=== PATIENT | male | born 1980 | race American Indian/Alaskan Native ===

== ENCOUNTER 2016-10-05 22:22 | Emergency (ER) | payer MEDICAID, OTHER ==
--- NOTE | 2016-10-06 00:57 | EDM.PDOC ---
ED HPI Trauma - General Chief Complaint: Upper Extremity Injury/Pain Stated Complaint: HURT WRIST - History of Present Illness INITIAL COMMENTS - FREE TEXT/NARRATIVE: See paper chart for details Allergies/ADRs: Allergies No Known Allergies Allergy (Verified 10/05/16 23:58) Home Medications: Ambulatory Orders Nitroglycerin [Nitrostat] 0.4 mg SL ASDIRECTED PRN 05/10/14 [Confirmed 10/05/16] Acetaminophen [Tylenol] 650 mg PO Q4H PRN #0 tablet 09/07/15 [Confirmed 10/05/16 ] Aspirin [Ecotrin] 81 mg PO DAILY 03/01/16 [Confirmed 10/05/16] Clopidogrel [Plavix] 75 mg PO DAILY 07/26/16 [Confirmed 10/05/16] Simvastatin [Zocor] 10 mg PO DAILY 07/26/16 [Confirmed 10/05/16] Past Medical History - Past Health History Medical/Surgical History: Denies Medical/Surgical History Cardiovascular History: Reports: Angina, CAD, High cholesterol, Hypertension, [place] , Stents Gastrointestinal History: Reports: GERD, GI bleed, Helicobacter pylori, PUD Musculoskeletal History: Reports: Other (see below) Other Musculoskeletal History: chronic pain in feet gwyn re: plantar fascitis and heelspurs Neurological History: Reports: Migraines Psychiatric History: Reports: Depression, Psych Hospitalization(s), Suicide attempt Endocrine/Metabolic History: Reports: Obesity/BMI 30+ - Infectious Disease History Infectious Disease History: Reports: Chicken pox - Past Surgical History Cardiovascular Surgical History: Reports: Coronary artery stent, Other (see below) Other Cardiovascular Surgeries/Procedures: angiogram GI Surgical History: Reports: Colonoscopy Musculoskeletal Surgical History: Reports: Other (see below) Other Musculoskeletal Surgeries/Procedures:: surgery on left foot for plantar fascitis in 2014 Social & Family History - Family History HEENT: Reports: Cataract Cardiac: Reports: [place], Prior cardiac arrest, Other (see below) Other Cardiac Family History: 33yr old cousin from massive heart attack Neurological: Reports: CVA, Seizure Psychiatric: Reports: Depression Endocrine/Metabolic: Reports: Diabetes, type II - Tobacco Use Smoking Status *Q: Former Smoker Years of Tobacco use: 20 Packs/Tins Daily: 0.5 Used Tobacco, but Quit: Yes Month Tobacco Last Used: jul 2016 Second Hand Smoke Exposure: Yes - Caffeine Use Caffeine Use: Reports: None - Alcohol Use Days Per Week of Alcohol Use: 0 - Recreational Drug Use Recreational Drug Use: No Drug Use in Last 12 Months: No Recreational Drug Type: Reports: Marijuana/Hashish Recreational Drug Use Frequency: Binges Recreational Drug Last Use: over a year ago Review of Systems - Review of Systems Review Of Systems: ROS reveals no pertinent complaints other than HPI. Trauma Exam - Physical Exam Exam: See Below Text/Narrative:: See paper chart for details Departure - Departure Time of Disposition: 00:56 Disposition: Home, Self-Care 01 Condition: good Clinical Impression: Contusion of bone Referrals: PCP,None [Primary Care Provider] - Forms: ED Department Discharge Additional Instructions: Nonsteroidal anti-inflammatories, ice, Please followup with your primary care provider in 3 to5 days if not better, please call return to the emergency department with worsening of symptoms.
--- NOTE | 2016-10-08 08:38 | CR ---
Forearm 2V Rt HISTORY: ?FX FINDINGS: No acute fracture or dislocation is identified. Bony architecture and joint spaces are preserved. Soft tissues are unremarkable. IMPRESSION: No acute right forearm abnormality identified.
== END 2016-10-05 23:38 | disposition home or self-care (01) ==
LOC: JP.ED 22:22
DX: S50.11XA Contusion of right forearm, initial encounter (principal); I25.10 Atherosclerotic heart disease of native coronary artery without angina pectoris; I10 Essential (primary) hypertension; I25.2 Old myocardial infarction; E78.00 Pure hypercholesterolemia, unspecified; K21.9 Gastro-esophageal reflux disease without esophagitis; F32.9 Major depressive disorder, single episode, unspecified; E66.9 Obesity, unspecified; Z68.36 Body mass index [BMI] 36.0-36.9, adult; Z95.5 Presence of coronary angioplasty implant and graft; Z98.890 Other specified postprocedural states; Z87.891 Personal history of nicotine dependence; Z79.82 Long term (current) use of aspirin; Z79.02 Long term (current) use of antithrombotics/antiplatelets; Z79.899 Other long term (current) drug therapy; X58.XXXA Exposure to other specified factors, initial encounter
CPT/HCPCS: 73090-26-RT; 73090-RT; 99282; 99284

== ENCOUNTER 2017-04-09 19:36 | Emergency (ER) | payer MEDICAID ==
[2017-04-09] MEDS ORDERED: HYDROmorphone 1 MG/ML Syringe IVPUSH ONE (20:50)
[2017-04-09] MEDS ORDERED: Ondansetron 4 MG/2 ML SDV IVPUSH ONE (20:51)
[2017-04-09] MEDS ORDERED: Sodium Chloride 0.9% 1,000 ML IV SCH (21:00)
[2017-04-09 21:45] VITALS: BP 121/72
--- NOTE | 2017-04-09 22:38 | EDM.PDOC ---
ED HPI GENERAL MEDICAL PROBLEM - General Chief Complaint: Back Pain or Injury Stated Complaint: BACK PAIN Time Seen by Provider: 04/09/17 20:15 Source of Information: Reports: Patient, Family () History Limitations: Reports: No Limitations - History of Present Illness INITIAL COMMENTS - FREE TEXT/NARRATIVE: back pain x 24 hours; this is a 36 year old male present to ER with , concerns of worsen back pain over the past 24 hours. Reports fever, chills, decreased urine amounts. also reports Granddaughter staying at the home, so he is now sleeping on the floor on a mattress. Rate pain at 7. Onset: Gradual Duration: Day(s): (one) Location: Reports: Back Quality: Reports: Sharp, Throbbing Severity: Moderate Improves with: Reports: None Worsens with: Reports: None Associated Symptoms: Reports: Fever/Chills Treatments WELT DRAWER: Reports: Acetaminophen, NSAIDS Bilateral Middle Back Pain Score (Numeric/FACES): 7 - Related Data Allergies Allergy/AdvReac Type Severity Reaction Status Date / Time No Known Allergies Allergy Verified 04/09/17 20:27 Home Meds: Home Meds Nitroglycerin [Nitrostat] 0.4 mg SL ASDIRECTED PRN 05/10/14 [History] Acetaminophen [Tylenol] 650 mg PO Q4H PRN #0 tablet 09/07/15 [Rx] Aspirin [Ecotrin] 81 mg PO DAILY 03/01/16 [History] Clopidogrel [Plavix] 75 mg PO DAILY 07/26/16 [History] Simvastatin [Zocor] 10 mg PO DAILY 07/26/16 [History] Past Medical History - Past Health History Medical/Surgical History: Denies Medical/Surgical History Cardiovascular History: Reports: Angina, CAD, High Cholesterol, Hypertension, [place] , Stents Gastrointestinal History: Reports: GERD, GI Bleed, Helicobacter Pylori, PUD Musculoskeletal History: Reports: Fracture Other Musculoskeletal History: chronic pain in feet gwyn re: plantar fascitis and heelspurs Neurological History: Reports: Migraines Psychiatric History: Reports: Depression, Psych Hospitalization(s), Suicide Attempt Endocrine/Metabolic History: Reports: Obesity/BMI 30+ - Infectious Disease History Infectious Disease History: Reports: Chicken Pox - Past Surgical History Cardiovascular Surgical History: Reports: Coronary Artery Stent, Other (See Below) Social & Family History - Family History HEENT: Reports: Cataract Cardiac: Reports: [place], Prior Cardiac Arrest, Other (See Below) Other Cardiac Family History: 33yr old cousin from massive heart attack Neurological: Reports: CVA, Seizure Psychiatric: Reports: Depression Endocrine/Metabolic: Reports: Diabetes, type II - Tobacco Use Smoking Status *Q: Current Every Day Smoker Years of Tobacco use: 20 Packs/Tins Daily: 1 Used Tobacco, but Quit: No Month Tobacco Last Used: jul 2016 Second Hand Smoke Exposure: Yes - Caffeine Use Caffeine Use: Reports: Tea - Alcohol Use Days Per Week of Alcohol Use: 0 - Recreational Drug Use Recreational Drug Use: Yes Drug Use in Last 12 Months: No Recreational Drug Type: Reports: Marijuana/Hashish Recreational Drug Use Frequency: Binges Recreational Drug Last Use: over a year ago - Living Situation & Occupation Living situation: Reports: (lives with , Ladan, and family in [place], [place].) ED ROS GENERAL - Review of Systems Review Of Systems: See Below Constitutional: Reports: Fever, Chills HEENT: Reports: No Symptoms Respiratory: Reports: No Symptoms Cardiovascular: Reports: No Symptoms Endocrine: Reports: No Symptoms GI/Abdominal: Reports: No Symptoms : Reports: Urgency, Urinary Retention Musculoskeletal: Reports: Back Pain Skin: Reports: No Symptoms Neurological: Reports: No Symptoms Psychiatric: Reports: No Symptoms Hematologic/Lymphatic: Reports: No Symptoms Immunologic: Reports: No Symptoms ED EXAM, GENERAL - Physical Exam Exam: See Below Exam Limited By: No Limitations General Appearance: Moderate Distress (unable to lay flat due to pain and muscle spasm.) Eye Exam: Bilateral Eye: Normal Inspection, PERRL Ears: Normal External Exam, Normal Canal, Hearing Grossly Normal, Normal TMs Ear Exam: Bilateral Ear: Auricle Normal, Canal Normal, TM normal Nose: Normal Inspection, Normal Mucosa, No Blood Throat/Mouth: Normal Inspection, Normal Lips, Normal Teeth, Normal Gums, Normal Oropharynx, Normal Voice, No Airway Compromise Head: Atraumatic, Normocephalic Neck: Normal Inspection, Supple, Non-Tender, Full Range of Motion Respiratory/Chest: No Respiratory Distress, Lungs Clear, Normal Breath Sounds, No Accessory Muscle Use, Chest Non-Tender Cardiovascular: Normal Peripheral Pulses, Regular Rate, Rhythm, No Edema, No Murmur GI/Abdominal: Normal Bowel Sounds, Soft, Non-Tender, No Organomegaly, No Distention, No Abnormal Bruit, No Mass (Male) Exam: Deferred Rectal (Males) Exam: Deferred Back Exam: Muscle Spasm (mid to low lumbar spine) Extremities: Increased Warmth Psychiatric: Normal Affect, Normal Mood Skin Exam: Warm, Dry, Intact, Normal Color, No Rash Lymphatic: No Adenopathy Course - Vital Signs Last Recorded V/S: Last Vital Signs Temp 36.4 C 04/09/17 20:42 Pulse 72 04/09/17 21:44 Resp 18 04/09/17 21:44 BP 121/72 04/09/17 21:44 Pulse Ox 95 04/09/17 21:44 - Orders/Labs/Meds Orders: Active Orders 24 hr Category Date Time Status Abdomen Pelvis wo Cont [CT] Stat Exams 04/09/17 20:51 Taken CULTURE URINE [RM] Stat Lab 04/09/17 10:30 Received Sodium Chloride 0.9% [Normal Saline] 1,000 ml Med 04/09/17 21:00 Active IV ASDIRECTED Medication Orders Sodium Chloride (Normal Saline) 1,000 mls @ 999 mls/hr IV ASDIRECTED ENZO Last Admin: 04/09/17 21:38 Dose: 999 mls/hr Labs: Laboratory Tests 04/09/17 04/09/17 04/09/17 Range/Units 20:54 21:02 21:02 WBC 12.6 H (4.5-11.0) K/uL RBC 5.56 (4.30-5.90) M/uL Hgb 16.0 H (12.0-15.0) g/dL Hct 47.9 (40.0-54.0) % MCV 86 (80-98) fL MCH 29 (27-31) pg MCHC 33 (32-36) % Plt Count 350 (150-400) K/uL Neut % (Auto) 61 (36-66) % Lymph % (Auto) 28 (24-44) % [place] % (Auto) 9 H (2-6) % Eos % (Auto) 2 (2-4) % Baso % (Auto) 1 (0-1) % Sodium 140 (140-148) mmol/L Potassium 4.0 (3.6-5.2) mmol/L Chloride 107 (100-108) mmol/L Carbon Dioxide 28 (21-32) mmol/L Anion Gap 4.8 L (5.0-14.0) mmol/L BUN 12 (7-18) mg/dL Creatinine 1.0 (0.8-1.3) mg/dL Est Cr Clr Drug Dosing 106.68 mL/min Estimated GFR (MDRD) > 60 (>60) Glucose 92 (74-106) mg/dL Calcium 8.5 (8.5-10.1) mg/dL Total Bilirubin 0.7 (0.2-1.0) mg/dL AST 12 L (15-37) U/L ALT 26 (12-78) U/L Alkaline Phosphatase 79 (46-116) U/L Total Protein 7.8 (6.4-8.2) g/dL Albumin 3.8 (3.4-5.0) g/dL Globulin 4.0 H (2.3-3.5) g/dL Albumin/Globulin Ratio 1.0 L (1.2-2.2) Urine Color Yellow Urine Appearance Cloudy Urine pH 5.0 (4.5-8.0) Ur Specific [place] 1.030 (1.008-1.030) Urine Protein Negative (NEGATIVE) mg/dL Urine Glucose (UA) 250 H (NEGATIVE) mg/dL Urine Ketones Negative (NEGATIVE) mg/dL Urine Occult Blood Trace (NEGATIVE) Urine Nitrite Negative (NEGAITVE) Urine Bilirubin Negative (NEGATIVE) Urine Urobilinogen 1 (NORMAL) mg/dL Ur Leukocyte Esterase Negative (NEGATIVE) Urine RBC 5-10 H (0-5) Urine WBC 5-10 H (0-5) Ur Epithelial Cells Moderate Amorphous Sediment Moderate Urine Bacteria Few Urine Mucus Moderate Urine Other See note Meds: Medications Generic Name Dose Route Start Last Admin Trade Name Freq PRN Reason Stop Dose Admin Sodium Chloride 1,000 mls @ 999 mls/hr 04/09/17 21:00 04/09/17 21:38 Normal Saline IV 999 mls/hr ASDIRECTED ENZO Administration Discontinued Medications Generic Name Dose Route Start Last Admin Trade Name Freq PRN Reason Stop Dose Admin Hydromorphone HCl 1 mg 04/09/17 20:50 04/09/17 21:42 Dilaudid IVPUSH 04/09/17 20:51 1 mg ONETIME ONE Administration Ondansetron HCl 4 mg 04/09/17 20:51 04/09/17 21:38 Zofran IVPUSH 04/09/17 20:52 4 mg ONETIME ONE Administration - Re-Assessments/Exams Free Text/Narrative Re-Assessment/Exam: 04/09/17 IV fluids and medications started labs; cbc, mild elevated WBC, chemistry; negative for sepsis, urine; +RBC, +WBC , +occult blood CT scan of Abdomen-pelvis; negative for acute pathology. reviewed labs and Xray with and Mrs. Kendrick will plan to discharge to home with medications to treat early UTI, and acute low back pain. urine culture pending. will need to follow up with Primary Care for recheck and Mrs Kendrick agree with plan of care. copy of CT reports given to couple for records. Departure - Departure Time of Disposition: 23:06 Disposition: Home, Self-Care 01 Condition: Good Clinical Impression: Muscle spasm of back Urinary tract infection Qualifiers: Urinary tract infection type: acute cystitis Hematuria presence: with hematuria Qualified Code(s): N30.01 - Acute cystitis with hematuria - Discharge Information Instructions: Urinary Tract Infection, Adult Referrals: PCP,None [Primary Care Provider] - Forms: ED Department Discharge Care Plan Goals: bladder infection in male -Keflex 500mg take one tablet two times a day for 7 days, -urine culture pending -drink plenty of fluids back spasm -push fluids -rest, no bending, lifting or twisting of spine for 3 days -take Tylenol or Motrin for pain -take Flexeril 10 mg every 8 hours as needed for spasm -take tylenol with codiene one every 4 to 6 hours as need for acute pain. Return to Clinic or ER for any increased pain, fever, chills, or not improved. - Problem List & Annotations (1) Muscle spasm of back SNOMED Code(s): 467511634 Code(s): M62.830 - MUSCLE SPASM OF BACK Status: Acute Priority: High Current Visit: Yes (2) Urinary tract infection SNOMED Code(s): 76463693 Code(s): N39.0 - URINARY TRACT INFECTION, SITE NOT SPECIFIED Status: Acute Priority: High Current Visit: Yes Qualifiers: Urinary tract infection type: acute cystitis Hematuria presence: with hematuria Qualified Code(s): N30.01 - Acute cystitis with hematuria - Problem List Review Problem List Initiated/Reviewed/Updated: Yes - My Orders Last 24 Hours: My Active Orders 04/09/17 10:30 CULTURE URINE [RM] Stat 04/09/17 20:51 Abdomen Pelvis wo Cont [CT] Stat 04/09/17 21:00 Sodium Chloride 0.9% [Normal Saline] 1,000 ml IV ASDIRECTED - Assessment/Plan Last 24 Hours: My Active Orders 04/09/17 10:30 CULTURE URINE [RM] Stat 04/09/17 20:51 Abdomen Pelvis wo Cont [CT] Stat 04/09/17 21:00 Sodium Chloride 0.9% [Normal Saline] 1,000 ml IV ASDIRECTED Plan: bladder infection in male -Keflex 500mg take one tablet two times a day for 7 days, -urine culture pending -drink plenty of fluids back spasm -push fluids -rest, no bending, lifting or twisting of spine for 3 days -take Tylenol or Motrin for pain -take Flexeril 10 mg every 8 hours as needed for spasm -take tylenol with codiene one every 4 to 6 hours as need for acute pain. Return to Clinic or ER for any increased pain, fever, chills, or not improved.
== END 2017-04-09 22:50 | disposition home or self-care (01) ==
LOC: JP.ED 19:36
DX: M62.838 Other muscle spasm (principal); N30.01 Acute cystitis with hematuria; I25.119 Atherosclerotic heart disease of native coronary artery with unspecified angina pectoris; I10 Essential (primary) hypertension; I25.2 Old myocardial infarction; E78.00 Pure hypercholesterolemia, unspecified; K21.9 Gastro-esophageal reflux disease without esophagitis; F32.9 Major depressive disorder, single episode, unspecified; F17.210 Nicotine dependence, cigarettes, uncomplicated; E66.9 Obesity, unspecified; Z68.37 Body mass index [BMI] 37.0-37.9, adult; Z79.82 Long term (current) use of aspirin; Z79.02 Long term (current) use of antithrombotics/antiplatelets; Z79.899 Other long term (current) drug therapy; Z95.5 Presence of coronary angioplasty implant and graft
CPT/HCPCS: 36415; 74176; 80053; 81001; 85025; 87086; 96361; 96374; 96375; 99284; J1170; J2405; J7040; 99283

== ENCOUNTER 2017-05-24 23:13 | Emergency (ER) | payer MEDICAID ==
[2017-05-24] MEDS ORDERED: Aspirin 81 MG Tab.Chew ONE (23:16)
[2017-05-24] MEDS ORDERED: Nitroglycerin 0.4 MG Tab.SL ONE (23:41)
[2017-05-24] MEDS: Nitroglycerin 0.4 MG Tab.SL SL PRN ×2 (23:42→23:47)
[2017-05-24] MEDS ORDERED: Aspirin 81 MG Tab.Chew PO ONE (23:43)
[2017-05-24] MEDS ORDERED: Sodium Chloride 0.9% 10 ML Syringe FLUSH PRN (23:43)
[2017-05-25 00:32] VITALS: BP 120/66
--- NOTE | 2017-05-25 01:41 | EDM.PDOC ---
ED HPI GENERAL MEDICAL PROBLEM - General Chief Complaint: Chest Pain Stated Complaint: CHEST PAIN / SOB Time Seen by Provider: 05/24/17 23:42 Source of Information: Reports: Patient History Limitations: Reports: No Limitations - History of Present Illness INITIAL COMMENTS - FREE TEXT/NARRATIVE: This patient comes in complaining of substernal chest tightness that began about 7:30 or 8 PM. He felt a little bit short of breath. He vomited twice. He denied any sweats. He had cardiac stents placed in 2013. He said he had an NM last year was treated in [place] but they did not do any more stents. He does not have a PCP. His smoke smoker. He said his pain initially was about 7 or 8 out of 10 but now it's only 4 out of 10he lost his bottle of nitroglycerin Treatments COMPLAINTS COORDINATOR: Reports: Aspirin Chest Pain Score (Numeric/FACES): 2 - Related Data Allergies Allergy/AdvReac Type Severity Reaction Status Date / Time No Known Allergies Allergy Verified 04/09/17 20:27 Home Meds: Home Meds Nitroglycerin [Nitrostat] 0.4 mg SL ASDIRECTED PRN 05/10/14 [History] Acetaminophen [Tylenol] 650 mg PO Q4H PRN #0 tablet 09/07/15 [Rx] Aspirin [Ecotrin] 81 mg PO DAILY 03/01/16 [History] Clopidogrel [Plavix] 75 mg PO DAILY 07/26/16 [History] Simvastatin [Zocor] 10 mg PO DAILY 07/26/16 [History] Past Medical History - Past Health History Medical/Surgical History: Denies Medical/Surgical History Cardiovascular History: Reports: Angina, CAD, High Cholesterol, Hypertension, [place] , Stents Gastrointestinal History: Reports: GERD, GI Bleed, Helicobacter Pylori, PUD Musculoskeletal History: Reports: Fracture Other Musculoskeletal History: chronic pain in feet gwyn re: plantar fascitis and heelspurs Neurological History: Reports: Migraines Psychiatric History: Reports: Depression, Psych Hospitalization(s), Suicide Attempt Endocrine/Metabolic History: Reports: Obesity/BMI 30+ - Infectious Disease History Infectious Disease History: Reports: Chicken Pox - Past Surgical History Cardiovascular Surgical History: Reports: Coronary Artery Stent, Other (See Below) Social & Family History - Family History HEENT: Reports: Cataract Cardiac: Reports: [place], Prior Cardiac Arrest, Other (See Below) Other Cardiac Family History: 33yr old cousin from massive heart attack Neurological: Reports: CVA, Seizure Psychiatric: Reports: Depression Endocrine/Metabolic: Reports: Diabetes, type II - Tobacco Use Smoking Status *Q: Light Tobacco Smoker Years of Tobacco use: 25 Packs/Tins Daily: 0.5 Used Tobacco, but Quit: No Month Tobacco Last Used: jul 2016 Second Hand Smoke Exposure: Yes - Caffeine Use Caffeine Use: Reports: Soda - Alcohol Use Days Per Week of Alcohol Use: 0 - Recreational Drug Use Recreational Drug Use: Yes Drug Use in Last 12 Months: No Recreational Drug Type: Reports: Marijuana/Hashish Recreational Drug Use Frequency: Binges Recreational Drug Last Use: over a year ago - Living Situation & Occupation Living situation: Reports: (lives with , Ladan, and family in [facility]) ED ROS GENERAL - Review of Systems Review Of Systems: See Below Constitutional: Reports: No Symptoms HEENT: Reports: No Symptoms Respiratory: Reports: Shortness of Breath Cardiovascular: Reports: Chest Pain Endocrine: Reports: No Symptoms GI/Abdominal: Reports: No Symptoms : Reports: No Symptoms ED EXAM, GENERAL - Physical Exam Exam: See Below Exam Limited By: No Limitations General Appearance: Alert, WD/WN, No Apparent Distress Eye Exam: Bilateral Eye: Normal Inspection Ears: Normal External Exam Head: Atraumatic Respiratory/Chest: Lungs Clear Cardiovascular: Regular Rate, Rhythm, No Murmur GI/Abdominal: Soft, Non-Tender (Male) Exam: Normal Inspection Extremities: Normal Inspection Neurological: Alert, Oriented Skin Exam: Warm, Dry Course - Vital Signs Last Recorded V/S: Last Vital Signs Temp 36.1 C 05/24/17 23:29 Pulse 79 05/25/17 00:32 Resp 18 05/25/17 00:32 BP 120/66 05/25/17 00:32 Pulse Ox 96 05/25/17 00:32 - Orders/Labs/Meds Orders: Active Orders 24 hr Category Date Time Status EKG Documentation Completion [RC] ASDIRECTED Care 05/24/17 23:43 Active EKG Documentation Completion [RC] ASDIRECTED Care 05/25/17 01:05 Active Chest 1V Frontal [CR] Urgent Exams 05/24/17 23:43 Taken Saline Lock Insert [OM.PC] Urgent Oth 05/24/17 23:43 Ordered EKG 12 Lead [EK] Urgent Ther 05/24/17 23:43 Ordered EKG 12 Lead [EK] Urgent Ther 05/25/17 01:05 Ordered Labs: Laboratory Tests 05/24/17 05/24/17 Range/Units 23:30 23:30 WBC 11.3 H (4.5-11.0) K/uL RBC 5.63 (4.30-5.90) M/uL Hgb 16.6 H (12.0-15.0) g/dL Hct 48.4 (40.0-54.0) % MCV 86 (80-98) fL MCH 30 (27-31) pg MCHC 34 (32-36) % Plt Count 331 (150-400) K/uL Neut % (Auto) 64 (36-66) % Lymph % (Auto) 27 (24-44) % [place] % (Auto) 8 H (2-6) % Eos % (Auto) 1 L (2-4) % Baso % (Auto) 0 (0-1) % Sodium 140 (140-148) mmol/L Potassium 3.6 (3.6-5.2) mmol/L Chloride 106 (100-108) mmol/L Carbon Dioxide 26 (21-32) mmol/L Anion Gap 8.1 (5.0-14.0) mmol/L BUN 11 (7-18) mg/dL Creatinine 1.0 (0.8-1.3) mg/dL Est Cr Clr Drug Dosing 106.68 mL/min Estimated GFR (MDRD) > 60 (>60) Glucose 106 (74-106) mg/dL Calcium 8.5 (8.5-10.1) mg/dL Total Bilirubin 1.1 H D (0.2-1.0) mg/dL AST 17 (15-37) U/L ALT 46 D (12-78) U/L Alkaline Phosphatase 89 (46-116) U/L Troponin I < 0.017 (0.000-0.056) ng/mL Total Protein 7.1 (6.4-8.2) g/dL Albumin 3.7 (3.4-5.0) g/dL Globulin 3.4 (2.3-3.5) g/dL Albumin/Globulin Ratio 1.1 L (1.2-2.2) Meds: Medications Discontinued Medications Generic Name Dose Route Start Last Admin Trade Name Kaye PRN Reason Stop Dose Admin Aspirin 324 mg 05/24/17 23:43 05/24/17 23:17 Aspirin PO 05/24/17 23:44 324 mg ONETIME ONE Administration Nitroglycerin Confirm 05/24/17 23:41 05/24/17 23:47 Nitrostat Administered 05/24/17 23:42 Not Given Dose 0.4 mg .ROUTE .STK-MED ONE Nitroglycerin 0.4 mg 05/24/17 23:44 05/24/17 23:47 Nitrostat SL 0.4 mg Q5M PRN Administration Chest Pain Sodium Chloride 10 ml 05/24/17 23:43 05/24/17 23:47 Saline Flush FLUSH 10 ml ASDIRECTED PRN Administration Keep Vein Open - Re-Assessments/Exams Free Text/Narrative Re-Assessment/Exam: 05/25/17 06:55 EKG shows normal sinus rhythm at 78 bpm incomplete right bundle branch block there were no ischemic changes Free Text/Narrative Re-Assessment/Exam: 05/25/17 06:56 Patient was given a total of 3 sublingual nitroglycerin times. After the second one his pain was mostly relieved and after the third when his pain was completely relieved labs were noted initial troponin is negative I discussed with the patient that we wanted to do a 3 hour troponin and repeat EKG before he left initially he agreed that then shortly afterwards decided he wanted to go home. After reconsideration I realize that he was having pain for 4 hours before having his first EKG and troponin so I don't think there is much value in waiting to do to three-hour troponin. Patient was given a new prescription for sublingual nitroglycerin. He was encouraged to follow up with his dolly pusher or a new primary care provider within the next week or 2. Return to the ER anytime if worse Departure - Departure Time of Disposition: 01:38 Disposition: Home, Self-Care 01 Condition: Fair Clinical Impression: Chest pain Instructions: Angina Pectoris, [id number] Referrals: PCP,None [Primary Care Provider] - Forms: ED Department Discharge Additional Instructions: The test we did were done after you had pain for about 4 hours. There is no evidence of a heart attack. Still it's likely that a part of your heart wasn't getting enough blood and so there could be some blockage. If the pain returns use the nitroglycerin. You can repeated every 3-5 minutes. If the pain isn't relieved after 2 nitroglycerin tablets then you should call 911 and return to the ER. Take 1 baby aspirin 81 mg daily. This is really important. Try to see the dolly pusher within the next couple of weeks. It would be advisable for you to have a family doctor locally. - My Orders Last 24 Hours: My Active Orders 05/24/17 23:43 EKG Documentation Completion [RC] ASDIRECTED Chest 1V Frontal [CR] Urgent Saline Lock Insert [OM.PC] Urgent EKG 12 Lead [EK] Urgent 05/25/17 01:05 EKG Documentation Completion [RC] ASDIRECTED EKG 12 Lead [EK] Urgent - Assessment/Plan Last 24 Hours: My Active Orders 05/24/17 23:43 EKG Documentation Completion [RC] ASDIRECTED Chest 1V Frontal [CR] Urgent Saline Lock Insert [OM.PC] Urgent EKG 12 Lead [EK] Urgent 05/25/17 01:05 EKG Documentation Completion [RC] ASDIRECTED EKG 12 Lead [EK] Urgent
--- NOTE | 2017-05-27 09:48 | CR ---
Chest 1V Frontal FINDINGS: The heart and vascular structures are normal in appearance. There are shallow lung volumes. There is elevation of the left hemidiaphragm. No infiltrates or effusions are demonstrated. The skel etal structures are unremarkable. IMPRESSION: 1. No acute findings.
== END 2017-05-25 01:49 | disposition home or self-care (01) ==
LOC: JP.ED 23:13
DX: R07.2 Precordial pain (principal); I10 Essential (primary) hypertension; I25.10 Atherosclerotic heart disease of native coronary artery without angina pectoris; E78.00 Pure hypercholesterolemia, unspecified; I25.2 Old myocardial infarction; K21.9 Gastro-esophageal reflux disease without esophagitis; F32.9 Major depressive disorder, single episode, unspecified; E66.9 Obesity, unspecified; Z95.5 Presence of coronary angioplasty implant and graft; F17.210 Nicotine dependence, cigarettes, uncomplicated; Z79.82 Long term (current) use of aspirin; Z79.02 Long term (current) use of antithrombotics/antiplatelets; Z79.899 Other long term (current) drug therapy; Z68.37 Body mass index [BMI] 37.0-37.9, adult
CPT/HCPCS: 36415; 71010; 80053; 84484; 85025; 93005; 99285; A9270; J7050

== ENCOUNTER 2018-04-30 20:34 | Emergency (ER) | payer MEDICAID ==
[2018-04-30 20:46] VITALS: BP 123/79
--- NOTE | 2018-04-30 21:11 | EDM.PDOC ---
ED HPI GENERAL MEDICAL PROBLEM - General Chief Complaint: Respiratory Problem Stated Complaint: SOB,LEFT SIDE FACE NUMB Time Seen by Provider: 04/30/18 20:55 Source of Information: Reports: Patient, Old Records, RN History Limitations: Reports: No Limitations - History of Present Illness INITIAL COMMENTS - FREE TEXT/NARRATIVE: 37 yo male with a known hx of CAD was started on isosorbide ? mononitrate a week ago by his nutrient management specialist in [place]. He was given this med due to having nearly daily chest pains. While he admits he has less chest pain since starting this med, he now gets numbness to the R side of his face and feels light-headed with standing after taking the med. His urine is not dark. He also mentions intermittent SOB since starting this med, he is not SOB now. He has not called his nutrient management specialist before coming to the ER. Onset: Sudden Onset Date: 04/24/18 Duration: Day(s): Location: Reports: Head, Face, Chest Severity: Mild Improves with: Reports: Other (not taking isosorbide) Worsens with: Reports: Other (? taking isosorbide) Context: Reports: Other (new med, known CAD) Associated Symptoms: Reports: Shortness of Breath. Denies: Diaphoresis, Headaches, Nausea/Vomiting Treatments HAND OUTSIDE CUTTER: Reports: Other (see below) (none) - Related Data Allergies Allergy/AdvReac Type Severity Reaction Status Date / Time No Known Allergies Allergy Verified 04/30/18 20:46 Home Meds: Home Meds Nitroglycerin [Nitrostat] 0.4 mg SL ASDIRECTED PRN 05/10/14 [History] Acetaminophen [Tylenol] 650 mg PO Q4H PRN #0 tablet 09/07/15 [Rx] Aspirin [Ecotrin] 81 mg PO DAILY 03/01/16 [History] Isosorbide Mononitrate [Isosorbide Mononitrate ER] 30 mg PO DAILY 04/30/18 [ History] atorvaSTATin [Lipitor] 80 mg PO BEDTIME 04/30/18 [History] Past Medical History - Past Health History Medical/Surgical History: Denies Medical/Surgical History Cardiovascular History: Reports: Angina, CAD, High Cholesterol, Hypertension, [place] , Stents Gastrointestinal History: Reports: GERD, GI Bleed, Helicobacter Pylori, PUD Musculoskeletal History: Reports: Fracture Other Musculoskeletal History: chronic pain in feet gwyn re: plantar fascitis and heelspurs Neurological History: Reports: Migraines Psychiatric History: Reports: Depression, Psych Hospitalization(s), Suicide Attempt Endocrine/Metabolic History: Reports: Obesity/BMI 30+ - Infectious Disease History Infectious Disease History: Reports: Chicken Pox - Past Surgical History Cardiovascular Surgical History: Reports: Coronary Artery Stent, Other (See Below) Social & Family History - Family History HEENT: Reports: Cataract Cardiac: Reports: [place], Prior Cardiac Arrest, Other (See Below) Other Cardiac Family History: 33yr old cousin from massive heart attack Neurological: Reports: CVA, Seizure Psychiatric: Reports: Depression Endocrine/Metabolic: Reports: Diabetes, type II - Tobacco Use Smoking Status *Q: Current Every Day Smoker Years of Tobacco use: 26 Packs/Tins Daily: 0.5 Second Hand Smoke Exposure: Yes - Caffeine Use Caffeine Use: Reports: Soda - Recreational Drug Use Recreational Drug Use: Yes Recreational Drug Type: Reports: Marijuana/Hashish Recreational Drug Use Frequency: Weekly - Living Situation & Occupation Living situation: Reports: (lives with , Ladan, and family in [place], [place].) ED ROS GENERAL - Review of Systems Review Of Systems: See Below Constitutional: Reports: No Symptoms HEENT: Reports: No Symptoms Respiratory: Reports: Shortness of Breath Cardiovascular: Reports: Chest Pain (less often since starting isosorbide), Lightheadedness (mainly with standing.) GI/Abdominal: Reports: No Symptoms : Reports: No Symptoms Musculoskeletal: Reports: No Symptoms Skin: Reports: No Symptoms Neurological: Reports: Paresthesia (intermittently of the right side of his face.) ED EXAM, GENERAL - Physical Exam Exam: See Below Exam Limited By: No Limitations General Appearance: Alert, WD/WN, No Apparent Distress Eye Exam: Bilateral Eye: Normal Inspection, PERRL Ears: Normal External Exam, Normal Canal, Hearing Grossly Normal, Normal TMs Ear Exam: Bilateral Ear: Auricle Normal, Canal Normal, TM normal Nose: Normal Inspection, Normal Mucosa, No Blood Throat/Mouth: Normal Inspection, Normal Lips, Normal Oropharynx, Normal Voice, No Airway Compromise Head: Atraumatic, Normocephalic Neck: Normal Inspection, Supple, Non-Tender Respiratory/Chest: No Respiratory Distress, Lungs Clear, Normal Breath Sounds, No Accessory Muscle Use Cardiovascular: Regular Rate, Rhythm, No Edema GI/Abdominal: Normal Bowel Sounds, Soft, Non-Tender, No Distention Back Exam: Normal Inspection. No: CVA Tenderness (R), CVA Tenderness (L) Extremities: Normal Inspection, Normal Range of Motion, Non-Tender, No Pedal Edema Neurological: Alert, Oriented, CN II-XII Intact, Normal Cognition, No Motor/ Sensory Deficits. No: Sensory/Motor Deficit Psychiatric: Normal Affect, Normal Mood Skin Exam: Warm, Dry, Intact, Normal Color, No Rash Lymphatic: No Adenopathy Course - Vital Signs Last Recorded V/S: Last Vital Signs Temp 36.2 C 04/30/18 20:44 Pulse 68 04/30/18 20:44 Resp 14 04/30/18 20:44 BP 123/79 04/30/18 20:44 Pulse Ox 97 04/30/18 20:44 Orthostatic Blood Pressure [ 116/78 Standing] Orthostatic Blood Pressure [ 112/80 Sitting] Orthostatic Blood Pressure [ 118/70 Supine] - Orders/Labs/Meds Orders: Active Orders 24 hr Category Date Time Status Orthostatic Vital Signs [RC] ASDIRECTED Care 04/30/18 21:05 Active Labs: Laboratory Tests 04/30/18 04/30/18 04/30/18 Range/Units 21:05 21:05 21:19 Sodium 140 (140-148) mmol/L Potassium 3.9 (3.6-5.2) mmol/L Chloride 105 (100-108) mmol/L Carbon Dioxide 24 (21-32) mmol/L Anion Gap 10.8 (5.0-14.0) mmol/L BUN 15 (7-18) mg/dL Creatinine 1.2 (0.8-1.3) mg/dL Est Cr Clr Drug Dosing 88.02 mL/min Estimated GFR (MDRD) > 60 (>60) Glucose 83 (74-106) mg/dL Calcium 9.0 (8.5-10.1) mg/dL Troponin I < 0.017 (0.000-0.056) ng/mL Urine Color Yellow Urine Appearance Slightly cloudy Urine pH 6.0 (4.5-8.0) Ur Specific [place] 1.020 (1.008-1.030) Urine Protein Negative (NEGATIVE) mg/dL Urine Glucose (UA) Normal (NEGATIVE) mg/dL Urine Ketones Negative (NEGATIVE) mg/dL Urine Occult Blood Negative (NEGATIVE) Urine Nitrite Negative (NEGAITVE) Urine Bilirubin Small (NEGATIVE) Urine Urobilinogen 4 (NORMAL) mg/dL Ur Leukocyte Esterase Small (NEGATIVE) Urine RBC 0-5 (0-5) Urine WBC 5-10 H (0-5) Ur Epithelial Cells Few Amorphous Sediment Not seen Urine Bacteria Not seen Urine Mucus Few Departure - Departure Time of Disposition: 21:55 Disposition: Home, Self-Care 01 Condition: Good Clinical Impression: Medication side effect - Discharge Information *PRESCRIPTION DRUG MONITORING PROGRAM REVIEWED*: Not Applicable *COPY OF PRESCRIPTION DRUG MONITORING REPORT IN PATIENT MIGUEL: Not Applicable Referrals: PCP,None [Primary Care Provider] - Forms: ED Department Discharge Additional Instructions: Call your nutrient management specialist in the morning to discuss your situation. Let him know you were here and testing including BMP, Trop, orthostatics, neuro exam, and UA were all normal. - My Orders Last 24 Hours: My Active Orders 04/30/18 21:05 Orthostatic Vital Signs [RC] ASDIRECTED - Assessment/Plan Last 24 Hours: My Active Orders 04/30/18 21:05 Orthostatic Vital Signs [RC] ASDIRECTED
== END 2018-04-30 22:11 | disposition home or self-care (01) ==
LOC: JP.ED 20:34
DX: R20.0 Anesthesia of skin (principal); R42 Dizziness and giddiness; T50.905A Adverse effect of unspecified drugs, medicaments and biological substances, initial encounter; I10 Essential (primary) hypertension; E66.9 Obesity, unspecified; F17.210 Nicotine dependence, cigarettes, uncomplicated
CPT/HCPCS: 36415; 80048; 81001; 84484; 99285

== ENCOUNTER 2018-12-22 22:14 | Emergency (ER) | payer MEDICAID, OTHER ==
[2018-12-22 22:36] VITALS: BP 140/81
[2018-12-22] MEDS ORDERED: Lidocaine 2% Viscous Solution 100 ML Bottle PO ONE (22:49)
[2018-12-22] MEDS ORDERED: Hydrocortisone Acetate 25 MG Supp RECTAL ONE (22:56)
[2018-12-22] MEDS ORDERED: Lidocaine 2% Viscous Solution 15 ML Cup PO ONE (22:58)
--- NOTE | 2018-12-22 23:03 | EDM.PDOC ---
ED HPI GENERAL MEDICAL PROBLEM - General Chief Complaint: Gastrointestinal Problem Stated Complaint: PAIN IN BOTTOM Time Seen by Provider: 12/22/18 22:40 Source of Information: Reports: Patient History Limitations: Reports: No Limitations - History of Present Illness INITIAL COMMENTS - FREE TEXT/NARRATIVE: 38-year-old male was lifting a heavy object 2 days ago when he felt some discomfort in his perirectal area. It is still bothering him and it's painful to walk or stand. No fevers or chills, no diarrhea, no incontinence. Onset: Sudden Duration: Day(s): (2 days ago) Location: Reports: Other (Perirectal area) Associated Symptoms: Reports: No Other Symptoms anus Pain Score (Numeric/FACES): 4 - Related Data Allergies Allergy/AdvReac Type Severity Reaction Status Date / Time No Known Allergies Allergy Verified 12/22/18 22:36 Home Meds: Home Meds Nitroglycerin [Nitrostat] 0.4 mg SL ASDIRECTED PRN 05/10/14 [History] Acetaminophen [Tylenol] 650 mg PO Q4H PRN #0 tablet 09/07/15 [Rx] Aspirin [Ecotrin] 81 mg PO DAILY 03/01/16 [History] Isosorbide Mononitrate [Isosorbide Mononitrate ER] 30 mg PO DAILY 04/30/18 [ History] atorvaSTATin [Lipitor] 80 mg PO BEDTIME 04/30/18 [History] Past Medical History - Past Health History Medical/Surgical History: Denies Medical/Surgical History Cardiovascular History: Reports: Angina, CAD, High Cholesterol, Hypertension, [place] , Stents Gastrointestinal History: Reports: GERD, GI Bleed, Helicobacter Pylori, PUD Musculoskeletal History: Reports: Fracture Other Musculoskeletal History: chronic pain in feet gwyn re: plantar fascitis and heelspurs Neurological History: Reports: Migraines Psychiatric History: Reports: Depression, Psych Hospitalization(s), Suicide Attempt Endocrine/Metabolic History: Reports: Obesity/BMI 30+ - Infectious Disease History Infectious Disease History: Reports: Chicken Pox - Past Surgical History Cardiovascular Surgical History: Reports: Coronary Artery Stent, Other (See Below) Social & Family History - Family History HEENT: Reports: Cataract Cardiac: Reports: [place], Prior Cardiac Arrest, Other (See Below) Other Cardiac Family History: 33yr old cousin from massive heart attack Neurological: Reports: CVA, Seizure Psychiatric: Reports: Depression Endocrine/Metabolic: Reports: Diabetes, type II - Tobacco Use Smoking Status *Q: Current Every Day Smoker Years of Tobacco use: 27 Packs/Tins Daily: 0.5 - Caffeine Use Caffeine Use: Reports: Soda - Recreational Drug Use Recreational Drug Use: No - Living Situation & Occupation Living situation: Reports: (lives with , Ladan, and family in [place], [place].) ED ROS GENERAL - Review of Systems Review Of Systems: See Below Constitutional: Denies: Fever, Chills Respiratory: Reports: No Symptoms GI/Abdominal: Denies: Abdominal Pain, Nausea, Vomiting Skin: Reports: No Symptoms ED EXAM, GI/ABD - Physical Exam Exam: See Below General Appearance: Alert, No Apparent Distress Respiratory/Chest: No Respiratory Distress GI/Abdominal Exam: Other (Perirectal area reveals several external hemorrhoids, partially thrombosed and tender to palpation) Course - Vital Signs Last Recorded V/S: Last Vital Signs Temp 97.6 F 12/22/18 22:38 Pulse 59 L 12/22/18 22:38 Resp 16 12/22/18 22:38 BP 140/81 12/22/18 22:38 Pulse Ox 100 12/22/18 22:38 - Orders/Labs/Meds Meds: Medications Discontinued Medications Generic Name Dose Route Start Last Admin Trade Name Kaye PRBell Reason Stop Dose Admin Hydrocortisone Acetate 25 mg 12/22/18 22:56 12/22/18 23:03 Anucort-Hc RECTAL 12/22/18 22:57 25 mg ONETIME ONE Administration Lidocaine HCl 15 ml 12/22/18 22:58 12/22/18 23:04 Xylocaine 2% Viscous PO 12/22/18 22:59 15 ml ONETIME ONE Administration - Re-Assessments/Exams Free Text/Narrative Re-Assessment/Exam: 12/22/18 23:01 Patient was given an Anusol HC suppository and topical 2% viscous lidocaine. He' ll use Anusol HC twice daily for the next several days along with warm baths and return in 2-3 days if not improving as incision may be necessary. He can also use topical hemorrhoid cream. Departure - Departure Time of Disposition: 23:17 Disposition: Home, Self-Care 01 Condition: Good Clinical Impression: External thrombosed hemorrhoids - Discharge Information Instructions: Hemorrhoids, [id number] Referrals: PCP,None [Primary Care Provider] - Forms: ED Department Discharge Care Plan Goals: Try suppositories twice daily for the next several days along with warm baths and topical numbing medicine or hemorrhoid cream. Recheck at your clinic or return in 2-3 days if not improving for an excision procedure.
[2018-12-23] MEDS ORDERED: Hydrocortisone Acetate 25 MG Supp RECTAL ONE (22:48)
== END 2018-12-22 23:17 | disposition home or self-care (01) ==
LOC: JP.ED 22:14
DX: K64.5 Perianal venous thrombosis (principal); F17.210 Nicotine dependence, cigarettes, uncomplicated; K21.9 Gastro-esophageal reflux disease without esophagitis; I10 Essential (primary) hypertension; I25.10 Atherosclerotic heart disease of native coronary artery without angina pectoris; I25.2 Old myocardial infarction; Z79.899 Other long term (current) drug therapy; Z79.82 Long term (current) use of aspirin
CPT/HCPCS: 99282; A9270

== ENCOUNTER 2018-12-31 15:43 | Emergency (ER) | payer OTHER ==
[2018-12-31 15:58] VITALS: BP 108/65
--- NOTE | 2018-12-31 17:09 | EDM.PDOC ---
ED HPI GENERAL MEDICAL PROBLEM - General Chief Complaint: Chest Pain Stated Complaint: MEDICAL VIA [facility]TH Time Seen by Provider: 12/31/18 16:25 Source of Information: Reports: Patient, Family History Limitations: Reports: No Limitations - History of Present Illness INITIAL COMMENTS - FREE TEXT/NARRATIVE: 38-year-old male who has a history of coronary artery disease but his last angiogram within the last 2 years was clear has had 2 episodes of intermittent sharp chest pain over the last 24 hours. The first was last night from 11:00 to 3 in the morning, some pleuritic nature to the pain with breathing. This morning he developed a second episode of chest pressure and pain in his arm was "numb". He went in to be checked at the [facility], an EKG was done which was normal but the patient was given aspirin and nitroglycerin and it seemed to help so the ambulance was called. He was sent to the closest emergency room which was [place], he brought with his lab results and EKG but there was no phone call, we did not know he was coming. He arrived pain-free and asymptomatic. Onset: Other (Symptoms started last night at 11 PM and have been intermittent) Duration: Waxing/Waning Quality: Reports: Ache, Pressure, Sharp Associated Symptoms: Reports: Chest Pain, Diaphoresis (Mild diaphoresis this morning). Denies: Cough, Shortness of Breath Denies Pain Score (Numeric/FACES): 0 - Related Data Allergies Allergy/AdvReac Type Severity Reaction Status Date / Time No Known Allergies Allergy Verified 12/31/18 15:58 Home Meds: Home Meds Nitroglycerin [Nitrostat] 0.4 mg SL ASDIRECTED PRN 05/10/14 [History] Acetaminophen [Tylenol] 650 mg PO Q4H PRN #0 tablet 09/07/15 [Rx] Aspirin [Ecotrin] 81 mg PO DAILY 03/01/16 [History] Isosorbide Mononitrate [Isosorbide Mononitrate ER] 30 mg PO DAILY 04/30/18 [ History] atorvaSTATin [Lipitor] 80 mg PO BEDTIME 04/30/18 [History] Past Medical History - Past Health History Medical/Surgical History: Denies Medical/Surgical History Cardiovascular History: Reports: Angina, CAD, High Cholesterol, Hypertension, [place] , Stents Gastrointestinal History: Reports: GERD, GI Bleed, Helicobacter Pylori, PUD Musculoskeletal History: Reports: Fracture Other Musculoskeletal History: chronic pain in feet gwyn re: plantar fascitis and heelspurs Neurological History: Reports: Migraines Psychiatric History: Reports: Depression, Psych Hospitalization(s), Suicide Attempt Endocrine/Metabolic History: Reports: Obesity/BMI 30+ - Infectious Disease History Infectious Disease History: Reports: Chicken Pox, Measles, Mumps - Past Surgical History Cardiovascular Surgical History: Reports: Coronary Artery Stent, Other (See Below) Social & Family History - Family History HEENT: Reports: Cataract Cardiac: Reports: [place], Prior Cardiac Arrest, Other (See Below) Other Cardiac Family History: 33yr old cousin from massive heart attack Neurological: Reports: CVA, Seizure Psychiatric: Reports: Depression Endocrine/Metabolic: Reports: Diabetes, type II - Tobacco Use Smoking Status *Q: Current Every Day Smoker Years of Tobacco use: 26 Packs/Tins Daily: 0.5 Used Tobacco, but Quit: No Second Hand Smoke Exposure: Yes - Caffeine Use Caffeine Use: Reports: Soda - Recreational Drug Use Recreational Drug Use: No - Living Situation & Occupation Living situation: Reports: (lives with , Ladan, and family in [place], [place].) ED ROS GENERAL - Review of Systems Review Of Systems: See Below Constitutional: Denies: Fever, Chills HEENT: Reports: No Symptoms Respiratory: Reports: Shortness of Breath, Pleuritic Chest Pain Cardiovascular: Reports: Chest Pain. Denies: Palpitations GI/Abdominal: Denies: Abdominal Pain, Nausea, Vomiting : Reports: No Symptoms, Other (I saw this patient last week with thrombosed external hemorrhoids which have resolved without treatment) Skin: Reports: No Symptoms Neurological: Denies: Headache Psychiatric: Reports: No Symptoms ED EXAM, GENERAL - Physical Exam Exam: See Below Exam Limited By: No Limitations General Appearance: Alert, No Apparent Distress Eye Exam: Bilateral Eye: Normal Inspection Head: Atraumatic Respiratory/Chest: No Respiratory Distress, Lungs Clear, Other (No chest wall palpation tenderness) Cardiovascular: Regular Rate, Rhythm, No Murmur. No: Extra Beats GI/Abdominal: Non-Tender Extremities: Normal Inspection. No: Pedal Edema Neurological: Alert, Oriented Psychiatric: Flat Affect Skin Exam: Warm, Dry EKG INTERPRETATION Rhythm: NSR (EKG reviewed from the clinic was normal) Course - Vital Signs Last Recorded V/S: Last Vital Signs Temp 96.8 F 12/31/18 15:56 Pulse 73 12/31/18 15:56 Resp 13 12/31/18 15:56 BP 108/65 12/31/18 15:56 Pulse Ox 98 12/31/18 15:56 - Orders/Labs/Meds Labs: Laboratory Tests 12/31/18 Range/Units 16:15 Troponin I < 0.017 (0.000-0.056) ng/mL - Re-Assessments/Exams Free Text/Narrative Re-Assessment/Exam: 12/31/18 17:08 EKG and labs from the clinic were reviewed. Only results not available was a troponin so this was drawn. Patient remained in normal sinus rhythm while awaiting lab results, troponin returned 0.0. I explained to the patient that it' s hard to recommend an urgent referral with a normal EKG and negative troponin with the chest pain has been intermittent for the past 14 hours. I did refill his nitroglycerin, and asked him to return if he continues to have to treat pain with nitroglycerin as a stress test or cardiology consultation may be necessary. Patient agreed with the plan. Departure - Departure Time of Disposition: 17:14 Disposition: Home, Self-Care 01 Condition: Good Clinical Impression: Atypical chest pain Instructions: Nonspecific Chest Pain Referrals: Lia Sharp I, [facility] [Primary Care Provider] - Forms: ED Department Discharge Care Plan Goals: Use nitroglycerin as needed for pain over the next 12-24 hours and recheck if the symptoms are persistent. Increase activity as tolerated.
== END 2018-12-31 17:14 | disposition home or self-care (01) ==
LOC: JP.ED 15:43
DX: R07.89 Other chest pain (principal); F17.210 Nicotine dependence, cigarettes, uncomplicated; I10 Essential (primary) hypertension; I25.10 Atherosclerotic heart disease of native coronary artery without angina pectoris; I25.2 Old myocardial infarction; Z79.82 Long term (current) use of aspirin; Z79.899 Other long term (current) drug therapy
CPT/HCPCS: 36415; 84484; 99284

== ENCOUNTER 2020-05-13 23:59 | Emergency (ER) | payer MEDICAID ==
[2020-05-14] MEDS ORDERED: HYDROmorphone 1 MG/ML Syringe IM ONE (00:41)
--- NOTE | 2020-05-14 00:45 | EDM.PDOC ---
ED HPI GENERAL MEDICAL PROBLEM - General Chief Complaint: Wound Recheck Stated Complaint: POST SURGERY Time Seen by Provider: 05/14/20 00:38 Source of Information: Reports: Patient, Family, RN Notes Reviewed History Limitations: Reports: No Limitations - History of Present Illness INITIAL COMMENTS - FREE TEXT/NARRATIVE: 39-year-old gentleman presents emergency department a complaint of pain in right calf pain, he is postop 3 from right hip replacement. He has been using oxycodone 5/325 2 tablets every 4 hours as needed for pain control. No shortness of breath or chest pain, did contact the nurses line recommend evaluation for DVT, taking aspirin and Plavix for blood thinner at this time Right Hip Pain Score (Numeric/FACES): 10 - Related Data Allergies Allergy/AdvReac Type Severity Reaction Status Date / Time No Known Allergies Allergy Verified 05/14/20 00:27 Home Meds: Home Meds Nitroglycerin [Nitrostat] 0.4 mg SL ASDIRECTED PRN 05/10/14 [History] Acetaminophen [Tylenol] 650 mg PO Q4H PRN #0 tablet 09/07/15 [Rx] Aspirin [Ecotrin EC] 81 mg PO DAILY 03/01/16 [History] Clopidogrel [Plavix] 75 mg PO DAILY 05/14/20 [History] atorvaSTATin [Lipitor] 20 mg PO BEDTIME 05/14/20 [History] hydrOXYzine HCL [Atarax] 25 mg PO Q6H 05/14/20 [History] oxyCODONE 1 tab PO Q4H 05/14/20 [History] Past Medical History Cardiovascular History: Reports: Angina, CAD, High Cholesterol, Hypertension, [place], Stents Gastrointestinal History: Reports: GERD, GI Bleed, Helicobacter Pylori, PUD Musculoskeletal History: Reports: Fracture Other Musculoskeletal History: chronic pain in feet gwyn re: plantar fascitis and heelspurs Neurological History: Reports: Migraines Psychiatric History: Reports: Depression, Psych Hospitalization(s), Suicide Attempt Endocrine/Metabolic History: Reports: Obesity/BMI 30+ - Infectious Disease History Infectious Disease History: Reports: Chicken Pox, Measles, Mumps - Past Surgical History Cardiovascular Surgical History: Reports: Coronary Artery Stent Musculoskeletal Surgical History: Reports: Hip Replacement Social & Family History - Family History HEENT: Reports: Cataract Cardiac: Reports: [place], Prior Cardiac Arrest, Other (See Below) Other Cardiac Family History: 33yr old cousin from massive heart attack Neurological: Reports: CVA, Seizure Psychiatric: Reports: Depression Endocrine/Metabolic: Reports: Diabetes, type II - Tobacco Use Smoking Status *Q: Current Every Day Smoker Years of Tobacco use: 20 Packs/Tins Daily: 0.5 Used Tobacco, but Quit: No Second Hand Smoke Exposure: Yes - Caffeine Use Caffeine Use: Reports: Soda Caffeine Use Comment: daily soda - Living Situation & Occupation Living situation: Reports: (lives with , Ladan, and family in [place], [place].) Review of Systems - Review of Systems Review Of Systems: See Below Constitutional: Reports: No Symptoms Respiratory: Reports: No Symptoms Cardiovascular: Reports: No Symptoms Musculoskeletal: Reports: Leg Pain ED EXAM, GENERAL - Physical Exam Exam: See Below Free Text/Narrative:: Examination the right leg surgical wound is clean dry and intact, he does have tenderness to dorsiflexion on the right over the calf is not swollen and is tender to the touch Course - Vital Signs Last Recorded V/S: Last Vital Signs Temp 99.1 F 05/14/20 00:36 Pulse 71 05/14/20 02:32 Resp 16 05/14/20 02:32 BP 122/83 05/14/20 02:32 Pulse Ox 98 05/14/20 02:32 - Orders/Labs/Meds Orders: Active Orders 24 hr Category Date Time Status VL Duplex Lwr Ext Veins Ltd Rt [US] Stat Exams 05/14/20 00:41 Taken Meds: Medications Discontinued Medications Generic Name Dose Route Start Last Admin Trade Name Freq PRN Reason Stop Dose Admin Hydromorphone HCl 1 mg 05/14/20 00:41 05/14/20 00:55 Dilaudid IM 05/14/20 00:42 1 mg ONETIME ONE Administration Departure - Departure Time of Disposition: 02:36 Disposition: Home, Self-Care 01 Condition: Fair Clinical Impression: Postoperative pain - Discharge Information Instructions: Pain Medicine Instructions Referrals: Castro Diaz MD [Primary Care Provider] - Forms: ED Department Discharge Additional Instructions: Continue with your regular medications, keep your follow-up appointment with orthopedic surgery, call or return to the emergency department worsening of sym ptoms Sepsis Event Note (ED) - Evaluation Sepsis Screening Result: No Definite Risk - Focused Exam Vital Signs: Vital Signs Temp Pulse Resp BP Pulse Ox 05/14/20 02:32 71 16 122/83 98 05/14/20 00:36 99.1 F 88 20 140/69 99 05/14/20 00:16 99.1 F 88 20 140/69 99 - My Orders Last 24 Hours: My Active Orders 05/14/20 00:41 VL Duplex Lwr Ext Veins Ltd Rt [US] Stat - Assessment/Plan Last 24 Hours: My Active Orders 05/14/20 00:41 VL Duplex Lwr Ext Veins Ltd Rt [US] Stat Plan: Assessment Acuity = acute Site and laterality = postsurgical pain right hip Etiology = postop day 3 Manifestations = none Location of injury = Home Lab values = ultrasound was negative for DVT right leg Plan Good relief with hydromorphone provided in the emergency department results of ultrasound discussed plans discharge home keep regular follow-up appointment with surgery This note was dictated using [employer] voice recognition software please call with any questions on syntax or grammar.
[2020-05-14] MEDS ORDERED: HYDROmorphone 1 MG/ML Syringe ONE (00:52)
[2020-05-14 02:33] VITALS: BP 122/83; PULSE 71
--- NOTE | 2020-05-16 09:26 | US ---
VL Duplex Lwr Ext Veins Ltd Rt INDICATION: pain post op FINDINGS: Ultrasound examination of the lower extremity using Doppler and compressive technique demonstrates that the common femoral, femoral, and popliteal veins are patent, and compressible throughout. The calf veins were segmentally visualized and are negative where seen. IMPRESSION: Negative for deep venous thrombosis.
== END 2020-05-14 02:50 | disposition home or self-care (01) ==
LOC: JP.ED 23:59
DX: G89.18 Other acute postprocedural pain (principal); M79.661 Pain in right lower leg; I10 Essential (primary) hypertension; I25.10 Atherosclerotic heart disease of native coronary artery without angina pectoris; I25.2 Old myocardial infarction; F17.210 Nicotine dependence, cigarettes, uncomplicated; E66.9 Obesity, unspecified; Z68.34 Body mass index [BMI] 34.0-34.9, adult; Z79.82 Long term (current) use of aspirin; Z79.02 Long term (current) use of antithrombotics/antiplatelets; Z79.899 Other long term (current) drug therapy
CPT/HCPCS: 93971; 96372; 99283; J1170; 99282

== ENCOUNTER 2020-05-31 17:03 | Emergency (ER) | payer MEDICAID ==
[2020-05-31 17:38] VITALS: BP 133/71; PULSE 64
--- NOTE | 2020-05-31 17:51 | EDM.PDOC ---
ED HPI GENERAL MEDICAL PROBLEM - General Chief Complaint: Lower Extremity Injury/Pain Stated Complaint: HIP PAIN Time Seen by Provider: 05/31/20 17:46 Source of Information: Reports: Patient, Old Records, RN, RN Notes Reviewed History Limitations: Reports: No Limitations - History of Present Illness INITIAL COMMENTS - FREE TEXT/NARRATIVE: Pt here in ER after PCP did not get refill of oxycodone to [facility] in time. Remote history of 3 weeks hip surgery. Called [facility] and RX is there. - Related Data Allergies Allergy/AdvReac Type Severity Reaction Status Date / Time No Known Allergies Allergy Verified 05/14/20 00:27 Home Meds: Home Meds Nitroglycerin [Nitrostat] 0.4 mg SL ASDIRECTED PRN 05/10/14 [History] Acetaminophen [Tylenol] 650 mg PO Q4H PRN #0 tablet 09/07/15 [Rx] Aspirin [Ecotrin EC] 81 mg PO DAILY 03/01/16 [History] Clopidogrel [Plavix] 75 mg PO DAILY 05/14/20 [History] atorvaSTATin [Lipitor] 20 mg PO BEDTIME 05/14/20 [History] hydrOXYzine HCL [Atarax] 25 mg PO Q6H 05/14/20 [History] oxyCODONE 1 tab PO Q4H 05/14/20 [History] Past Medical History Cardiovascular History: Reports: Angina, CAD, High Cholesterol, Hypertension, [place], Stents Gastrointestinal History: Reports: GERD, GI Bleed, Helicobacter Pylori, PUD Musculoskeletal History: Reports: Fracture Other Musculoskeletal History: chronic pain in feet gwyn re: plantar fascitis and heelspurs Neurological History: Reports: Migraines Psychiatric History: Reports: Depression, Psych Hospitalization(s), Suicide Attempt Endocrine/Metabolic History: Reports: Obesity/BMI 30+ - Infectious Disease History Infectious Disease History: Reports: Chicken Pox, Measles, Mumps - Past Surgical History Cardiovascular Surgical History: Reports: Coronary Artery Stent Musculoskeletal Surgical History: Reports: Hip Replacement Social & Family History - Family History HEENT: Reports: Cataract Cardiac: Reports: [place], Prior Cardiac Arrest, Other (See Below) Other Cardiac Family History: 33yr old cousin from massive heart attack Neurological: Reports: CVA, Seizure Psychiatric: Reports: Depression Endocrine/Metabolic: Reports: Diabetes, type II - Tobacco Use Tobacco Use Status *Q: Unknown Ever Used Tobacco - Caffeine Use Caffeine Use: Reports: Soda Caffeine Use Comment: daily soda - Living Situation & Occupation Living situation: Reports: (lives with , Ladan, and family in [place], [place].) Review of Systems - Review of Systems Review Of Systems: See Below Constitutional: Reports: No Symptoms Eyes: Reports: No Symptoms Ears: Reports: No Symptoms Nose: Reports: No Symptoms Mouth/Throat: Reports: No Symptoms Respiratory: Reports: No Symptoms Cardiovascular: Reports: No Symptoms GI/Abdominal: Reports: No Symptoms Genitourinary: Reports: No Symptoms Musculoskeletal: Reports: Leg Pain (R hip surgery ) Skin: Reports: No Symptoms Neurological: Reports: No Symptoms Psychiatric: Reports: No Symptoms ED EXAM, GENERAL - Physical Exam Exam: See Below Exam Limited By: No Limitations General Appearance: Alert, WD/WN, Moderate Distress Head: Normocephalic Neck: Normal Inspection Respiratory/Chest: Lungs Clear Cardiovascular: Regular Rate, Rhythm (Male) Exam: Deferred Rectal (Males) Exam: Deferred Neurological: Alert, Oriented, CN II-XII Intact Psychiatric: Anxious Skin Exam: Warm, Dry, Intact Course - Vital Signs Last Recorded V/S: Last Vital Signs Temp 36.4 C 05/31/20 17:39 Pulse 64 05/31/20 17:39 Resp 16 05/31/20 17:39 BP 133/71 05/31/20 17:39 Pulse Ox 98 05/31/20 17:39 - Orders/Labs/Meds Meds: Medications Discontinued Medications Generic Name Dose Route Start Last Admin Trade Name Freq PRN Reason Stop Dose Admin Ketorolac Tromethamine 30 mg 05/31/20 17:58 05/31/20 18:04 Toradol IVPUSH 05/31/20 17:59 30 mg ONETIME ONE Administration Departure - Departure Time of Disposition: 17:51 Disposition: Home, Self-Care 01 Condition: Fair Clinical Impression: Pain - Discharge Information *PRESCRIPTION DRUG MONITORING PROGRAM REVIEWED*: Not Applicable *COPY OF PRESCRIPTION DRUG MONITORING REPORT IN PATIENT MIGUEL: Not Applicable Instructions: Pain Relief Before and After Surgery Referrals: Douglas Kinsey PA-C [Primary Care Provider] - Forms: ED Department Discharge Care Plan Goals: Take pain meds as prescribed. Follow up with your provider as needed. Sepsis Event Note (ED) - Evaluation Sepsis Screening Result: No Definite Risk - Problem List Review Problem List Initiated/Reviewed/Updated: Yes - Assessment/Plan Plan: Take pain meds as prescribed. Follow up with your provider as needed.
[2020-05-31] MEDS ORDERED: Ketorolac 30 MG/ML SDV IVPUSH ONE (17:58)
== END 2020-05-31 18:10 | disposition home or self-care (01) ==
LOC: JP.ED 17:03
DX: M25.551 Pain in right hip (principal); G89.18 Other acute postprocedural pain; I10 Essential (primary) hypertension; E78.00 Pure hypercholesterolemia, unspecified; I25.2 Old myocardial infarction; Z95.5 Presence of coronary angioplasty implant and graft; I25.10 Atherosclerotic heart disease of native coronary artery without angina pectoris; E66.9 Obesity, unspecified; Z68.34 Body mass index [BMI] 34.0-34.9, adult; Z79.82 Long term (current) use of aspirin; Z79.02 Long term (current) use of antithrombotics/antiplatelets; Z79.899 Other long term (current) drug therapy
CPT/HCPCS: 96374; 99283; J1885

== ENCOUNTER 2021-03-20 20:23 | Emergency (ER) | payer MEDICAID ==
[2021-03-20 20:51] VITALS: BP 137/81; PULSE 80
[2021-03-20] MEDS ORDERED: Ibuprofen 800 MG Tab PO ONE (21:23)
--- NOTE | 2021-03-20 21:25 | EDM.PDOC ---
ED HPI GENERAL MEDICAL PROBLEM - General Chief Complaint: Upper Extremity Injury/Pain Stated Complaint: INJURED FINGER R HAND Time Seen by Provider: 03/20/21 21:19 Source of Information: Reports: Patient, RN History Limitations: Reports: No Limitations - History of Present Illness INITIAL COMMENTS - FREE TEXT/NARRATIVE: Amaury is a 40 year old male presents to ER for right fourth digit injury. Amaury reports around 8pm this evening, his finger got caught in dog collar resulting in a rotational injury and pain. Amaury has not applied ice or taken any medications for pain this evening. - Related Data Allergies Allergy/AdvReac Type Severity Reaction Status Date / Time No Known Allergies Allergy Verified 03/20/21 20:45 Home Meds: Home Meds Nitroglycerin [Nitrostat] 0.4 mg SL ASDIRECTED PRN 05/10/14 [History] Aspirin [Ecotrin EC] 81 mg PO DAILY 03/01/16 [History] Clopidogrel [Plavix] 75 mg PO BEDTIME 05/14/20 [History] atorvaSTATin [Lipitor] 20 mg PO BEDTIME 05/14/20 [History] hydrOXYzine HCL [Atarax] 25 mg PO Q6H 05/14/20 [History] Past Medical History Cardiovascular History: Reports: Angina, CAD, High Cholesterol, Hypertension, [place], Stents Gastrointestinal History: Reports: GERD, GI Bleed, Helicobacter Pylori, PUD Musculoskeletal History: Reports: Fracture Other Musculoskeletal History: chronic pain in feet gwyn re: plantar fascitis and heelspurs Neurological History: Reports: Migraines, Other (See Below) Other Neuro History: ankleluspondilitis Psychiatric History: Reports: Depression, Psych Hospitalization(s), Suicide Attempt Endocrine/Metabolic History: Reports: Obesity/BMI 30+ - Infectious Disease History Infectious Disease History: Reports: Chicken Pox, Measles, Mumps - Past Surgical History Cardiovascular Surgical History: Reports: Coronary Artery Stent Other Cardiovascular Surgeries/Procedures: angiogram GI Surgical History: Reports: Colonoscopy Musculoskeletal Surgical History: Reports: Hip Replacement Other Musculoskeletal Surgeries/Procedures:: surgery on left foot for plantar fascitis in 2014 Social & Family History - Family History HEENT: Reports: Cataract Cardiac: Reports: [place], Prior Cardiac Arrest, Other (See Below) Other Cardiac Family History: 33yr old cousin from massive heart attack Neurological: Reports: CVA, Seizure Psychiatric: Reports: Depression Endocrine/Metabolic: Reports: Diabetes, type II - Tobacco Use Tobacco Use Status *Q: Current Every Day Tobacco User Years of Tobacco use: 18 Packs/Tins Daily: 0.5 - Caffeine Use Caffeine Use: Reports: Soda Caffeine Use Comment: daily soda - Recreational Drug Use Recreational Drug Use: No - Living Situation & Occupation Living situation: Reports: (lives with , Ladan, and family in [place], [place].) Review of Systems - Review of Systems Review Of Systems: Comprehensive ROS is negative, except as noted in HPI. ED EXAM, GENERAL - Physical Exam Exam: See Below Exam Limited By: No Limitations General Appearance: Alert, WD/WN, Mild Distress (finger injury) Eye Exam: Bilateral Eye: Normal Inspection Ears: Hearing Grossly Normal Nose: Normal Inspection Throat/Mouth: Normal Voice, No Airway Compromise Neck: Normal Inspection, Full Range of Motion Respiratory/Chest: No Respiratory Distress, Normal Breath Sounds Cardiovascular: Normal Peripheral Pulses, Regular Rate, Rhythm Extremities: Joint Swelling (rigth fourth digit swelling and pain with slight rotation at the level of DIP/middle/distal phalanx with erythema. Skin intact. ) Course - Vital Signs Last Recorded V/S: Last Vital Signs Temp 36.6 C 03/20/21 20:49 Pulse 80 03/20/21 20:49 Resp 16 03/20/21 20:49 BP 137/81 03/20/21 20:49 Pulse Ox 96 03/20/21 20:49 - Orders/Labs/Meds Orders: Active Orders 24 hr Category Date Time Status Fingers Fourth Digit Rt F8 [CR] Stat Exams 03/20/21 21:21 Taken Ice Pack [Ice Therapy] [OM.PC] Routine Oth 03/20/21 21:23 Ordered Meds: Medications Discontinued Medications Generic Name Dose Route Start Last Admin Trade Name Freq PRN Reason Stop Dose Admin Ibuprofen 800 mg 03/20/21 21:23 03/20/21 21:55 Ibuprofen 800 Mg Tab PO 03/20/21 21:24 800 mg ONETIME ONE Administration - Re-Assessments/Exams Free Text/Narrative Re-Assessment/Exam: Right fourth finger xray: Acute non displaced distal phalanx fracture, distal to the DIP joint. Does not involve joint line. Images read by me and reviewed with ER MD during visit. Radiology report pending at time of documentation. 03/20/21 22:24 Finger splint of choice was placed to immobilized, prevent pain due to bumping and injury. 03/20/21 22:27 Departure - Departure Time of Disposition: 22:32 Disposition: Home, Self-Care 01 Clinical Impression: Fracture, finger, distal phalanx - Discharge Information Instructions: Finger Fracture, Adult, Pain Medicine Instructions, [id number] Referrals: Dasia Rod DO [Primary Care Provider] - Forms: ED Department Discharge Additional Instructions: 1. Wear split at all times for the next 2 weeks then consider just using coban warp for 4 more weeks or until pain is minimal or nearly gone. 2. Ibuprofen 600-800mg every 6-8 hrs for pain, swelling and inflammation. 3. Tylenol 500-1000mg every 6-8 hrs for mild to moderate pain. 4. Ice 15-20 minutes 3-4 times per day if helps with pain. 5. Return to clinic or ER if worsening symptoms, pain or new concerns. Sepsis Event Note (ED) - Evaluation Sepsis Screening Result: No Definite Risk - Focused Exam Vital Signs: Vital Signs Temp Pulse Resp BP Pulse Ox 03/20/21 20:49 36.6 C 80 16 137/81 96 03/20/21 20:38 36.6 C 80 16 137/81 96 - My Orders Last 24 Hours: My Active Orders 03/20/21 21:21 Fingers Fourth Digit Rt F8 [CR] Stat 03/20/21 21:23 Ice Pack [Ice Therapy] [OM.PC] Routine - Assessment/Plan Last 24 Hours: My Active Orders 03/20/21 21:21 Fingers Fourth Digit Rt F8 [CR] Stat 03/20/21 21:23 Ice Pack [Ice Therapy] [OM.PC] Routine
--- NOTE | 2021-03-22 09:05 | CR ---
Fingers Fourth Digit Rt F8 CLINICAL HISTORY: Injury FINDINGS: There is a fracture of the fourth distal phalanx. There is articular surface involvement at the DIP joint IMPRESSION: Nondisplaced fracture fourth distal phalanx
== END 2021-03-20 22:45 | disposition home or self-care (01) ==
LOC: JP.ED 20:23
DX: S62.664A Nondisplaced fracture of distal phalanx of right ring finger, initial encounter for closed fracture (principal); I25.119 Atherosclerotic heart disease of native coronary artery with unspecified angina pectoris; I10 Essential (primary) hypertension; I25.2 Old myocardial infarction; E66.9 Obesity, unspecified; Z68.37 Body mass index [BMI] 37.0-37.9, adult; Z95.5 Presence of coronary angioplasty implant and graft; Z72.0 Tobacco use; Z79.82 Long term (current) use of aspirin; Z79.02 Long term (current) use of antithrombotics/antiplatelets; Z79.899 Other long term (current) drug therapy; W54.1XXA Struck by dog, initial encounter
CPT/HCPCS: 73140; 99283; A9270

== ENCOUNTER 2022-10-15 00:46 | Emergency (ER) | payer MEDICAID ==
[2022-10-15 00:57] VITALS: BP 144/68; PULSE 79
[2022-10-15] MEDS ORDERED: Sodium Chloride 0.9% 10 ML Syringe FLUSH PRN (01:20)
[2022-10-15] MEDS ORDERED: Iopamidol 612 MG/ML 100 ML Bottle IV STA (01:50)
[2022-10-15] MEDS ORDERED: Sodium Chloride 0.9% 50 ML IV STA (01:50)
[2022-10-15 01:52] LABS: ESTIMATED GFR 95 mL/min (>60)
[2022-10-15] MEDS ORDERED: cefTRIAXone 500 MG, Lidocaine 1% 1 ML IM ONE ×2 (02:37)
== END 2022-10-15 04:01 | disposition home or self-care (01) ==
LOC: JP.ED 00:46
DX: N45.1 Epididymitis (principal); N39.0 Urinary tract infection, site not specified; I25.119 Atherosclerotic heart disease of native coronary artery with unspecified angina pectoris; E78.00 Pure hypercholesterolemia, unspecified; I10 Essential (primary) hypertension; I25.2 Old myocardial infarction; K21.9 Gastro-esophageal reflux disease without esophagitis; E66.9 Obesity, unspecified; Z79.82 Long term (current) use of aspirin; Z79.02 Long term (current) use of antithrombotics/antiplatelets; Z79.899 Other long term (current) drug therapy; Z72.0 Tobacco use; Z68.36 Body mass index [BMI] 36.0-36.9, adult
CPT/HCPCS: 36415; 74177; 80053; 81001; 85025; 86140; 93975; 96372; 99284; J0696; J3490; Q9967